=== PATIENT | male | born 1950 | race Caucasian/White ===

== ENCOUNTER 2018-07-04 16:44 | Inpatient (IN) | payer MEDICARE, OTHER ==
[~2018-07-04] VITALS: Ht 170.2 cm; Wt 90.2 kg
[~2018-07-04 16:44] MED LIST: ALPH50CA2 PO; APIX5TAB PO; ASPI-515 PO; ATOR40TA PO; B12/1TAB PO; BIOT1CAP3 PO; CALC-534 PO; CHOL400C PO; COCO100O2 PO; GLUC1TAB35 PO; GOLD1CAP5 PO; GRAP50CA3 PO; OMEG-14 PO; RANI150T23 PO; TRIA1CAP3 PO; TURM500C7 PO; UBID100C41 PO; [UNRECOGNIZED DRUG - OTHER]
[2018-07-04 17:26] LABS: BASOPHILS # (AUTO) 0.08 x10^3/uL (0-0.1); BASOPHILS % (AUTO) 1 % (0-1); EOSINOPHILS # (AUTO) 0.28 x10^3/uL (0-0.4); EOSINOPHILS % (AUTO) 3 % (1-7); LYMPHOCYTES # (AUTO) 2.21 x10^3/uL (1-3.4); LYMPHOCYTES % (AUTO) 24 % (22-44); MD NO; MEAN CORPUSCULAR HEMOGLOBIN 31.1 pg (27.5-34.5); MEAN CORPUSCULAR VOLUME 91.5 fL (81-97); MEAN PLATELET VOLUME 8.9 fL (7.4-10.4); MONOCYTES # (AUTO) 1.26 x10^3/uL (0.2-0.8); MONOCYTES % (AUTO) 14 % (2-9); NEUTROPHILS # (AUTO) 5.32 x10^3/uL (1.8-6.8); NEUTROPHILS % (AUTO) 58 % (42-75); PLATELET COUNT 188 x10^3/uL (130-400); RED BLOOD COUNT 5.87 x10^6/uL (4.38-5.82); RED CELL DISTRIBUTION WIDTH 13.9 % (9.4-14.8)
[2018-07-04] MEDS ORDERED: ASPIRIN 81 MG TABLET CHEW PO ONE (17:30)
[2018-07-04 17:36] LABS: ANION GAP 9 mmol/L (5-15); CALCIUM 9.6 mg/dL (8.5-10.1); CHLORIDE 105 mmol/L (98-107); CREATININE 1.22 mg/dL (0.7-1.3)
[2018-07-04 17:40] LABS: TROPONIN I < 0.015 ng/mL (0.000-0.045)
[2018-07-04] MEDS ORDERED: ASPIRIN 81 MG TABLET CHEW ONE (17:58)
[2018-07-04] MEDS ORDERED: RANI150T23 PO ×2 (18:13→21:06)
[2018-07-04] MEDS ORDERED: NITROGLYCERIN SINGLE TAB 0.4 MG SL PRN (18:30)
[2018-07-04] MEDS ORDERED: SODIUM CHLORIDE 0.9% 1,000 ML IV ONE (18:36)
[2018-07-04] MEDS ORDERED: SODIUM CHLORIDE FLUSH 10ML SYR IVF PRN (19:00)
[2018-07-04] MEDS ORDERED: ASTA4CAP PO (19:17)
[2018-07-04] MEDS ORDERED: SODIUM CHLORIDE 0.9% 1,000 ML IV SCH (19:17)
[2018-07-04] MEDS ORDERED: ACETAMINOPHEN 325 MG TABLET PO PRN (19:30)
[2018-07-04] MEDS ORDERED: NITROGLYCERIN 0.4 MG BOTTLE (25 TABS) SL PRN (19:30)
[2018-07-04] MEDS ORDERED: ONDANSETRON 2MG/ML, 2ML IVPush PRN (19:30)
[2018-07-04] MEDS ORDERED: POLYETHYLENE GLYCOL 17 GM PACKET PO PRN (19:30)
[2018-07-04] MEDS ORDERED: ONDANSETRON ODT 4 MG PO PRN (19:30)
[2018-07-04] MEDS ORDERED: hydrALAzine 20 MG/ML, 1ML IVPush PRN (19:30)
[2018-07-04 20:00] VITALS: BP 158/77
[2018-07-04] MEDS ORDERED: ATORVASTATIN 10 MG TABLET PO SCH (21:00)
[2018-07-04] MEDS ORDERED: CALC200T3 PO (21:07)
[2018-07-04] MEDS ORDERED: METO25TA4 PO (21:10)
[2018-07-04] MEDS ORDERED: METOPROLOL TARTRATE 25 MG TABLET PO ONE (21:30)
[2018-07-04] MEDS: CALCIUM CARBONATE 500 MG TAB.CHEW PO PRN (21:42)
[2018-07-04 21:45] VITALS: BP 133/86
[2018-07-05 01:28] VITALS: BP 146/84
[2018-07-05] MEDS: CALCIUM CARBONATE 500 MG TAB.CHEW PO PRN (03:25)
[2018-07-05 05:53] LABS: CHOL/HDL RATIO 3.3; CHOLESTEROL, TOTAL 144 mg/dL (140-239); HDL CHOL % 30 % (26-37); HDL CHOLESTEROL (DIRECT) 43 mg/dL (40-60); LDL CHOLESTEROL,CALCULATED 55 mg/dL (54-169); LDL/HDL RATIO 1.3 (0.5-3.0); TRIGLYCERIDES 231 mg/dL (50-200); TROPONIN I 0.019 ng/mL (0.000-0.045); VLDL CHOLESTEROL 46 mg/dL (0-25)
[2018-07-05 06:49] VITALS: BP 164/85
[2018-07-05] MEDS ORDERED: METOPROLOL TARTRATE 25 MG TABLET ONE (07:26)
[2018-07-05] MEDS: METOPROLOL TARTRATE 25 MG TABLET PO SCH ×2 (07:30→12:51)
[2018-07-05] MEDS ORDERED: REGADENOSON 0.4 MG/5 ML SYRINGE ONE (08:39)
[2018-07-05] MEDS ORDERED: TEMPLATE NON-FORMULARY MED. (Gluc/Chon-Msm#1/Vit C/Mang/Bor** (Glucosa-Chond-Msm Complex C PO SCH (09:00)
[2018-07-05] MEDS ORDERED: GOLDEN SEAL PO SCH (09:00)
[2018-07-05] MEDS ORDERED: TRIAMTERENE-HCTZ 37.5/25 MG TABLET PO SCH (09:00)
[2018-07-05] MEDS ORDERED: TURMERIC ROOT EXTRACT PO SCH (09:00)
[2018-07-05] MEDS ORDERED: ALPHA LIPOIC ACID 50 MG PO SCH (09:00)
[2018-07-05] MEDS ORDERED: FAMOTIDINE 20 MG TABLET PO SCH (09:00)
[2018-07-05] MEDS ORDERED: ASTAXANTHIN PO SCH (09:00)
[2018-07-05] MEDS ORDERED: OMEGA-3/FISH OIL CAPSULE PO SCH (09:00)
[2018-07-05] MEDS ORDERED: [UNRECOGNIZED DRUG - OTHER] PO SCH (09:00)
[2018-07-05 13:10] VITALS: BP 138/82
[2018-07-05] MEDS ORDERED: METO25TA4 PO (14:37)
== END 2018-07-05 16:13 | disposition home or self-care (01) | DRG 303 ==
LOC: ED 18:31 → EDIP 18:36 → ED 18:40 → 5SO 19:44
PROVIDERS: ADMIT Hospitalist; ATTEND Hospitalist
DX: I25.110 Atherosclerotic heart disease of native coronary artery with unstable angina pectoris (principal); I44.7 Left bundle-branch block, unspecified; I10 Essential (primary) hypertension; E78.5 Hyperlipidemia, unspecified; E78.1 Pure hyperglyceridemia; I48.0 Paroxysmal atrial fibrillation; Z95.2 Presence of prosthetic heart valve; Z72.89 Other problems related to lifestyle; Z86.19 Personal history of other infectious and parasitic diseases; Z88.1 Allergy status to other antibiotic agents
CPT/HCPCS: 36415; 71046; 78452; 80048; 80061; 82040; 84443; 84484; 85025; 93005; 93017; 93306; 99285; G0378; J2785; A9502; C9898; J7030